=== PATIENT | female | born 1965 | race Hispanic/Latino ===

== ENCOUNTER → 2019-02-17 | Outpatient (CLI) | payer OTHER | END | disposition home or self-care (01) | LOC: OIH 11:43 | PROVIDERS: ATTEND Internal Medicine Cardiovascular Disease | DX: Z13.6 Encounter for screening for cardiovascular disorders (principal) | CPT/HCPCS: 75571 ==

== ENCOUNTER 2023-07-09 09:30 | Day surgery (SDC) | payer OTHER, MEDICARE ==
[2023-07-04 13:36] VITALS: BP 193/88; PULSE 55; RESP 18
[2023-07-09] VITALS (11 sets, daily range): BP systolic 121–175; BP diastolic 68–88; PULSE 52–84; RESP 14–19
[~2023-07-09] VITALS: Ht 154.9 cm; Wt 63.0 kg
[~2023-07-09 09:30] MED LIST: ACET-66 PO; AEC81 PO; AMLO-258 PO; ASCO-360 PO; ATOR40TA71 PO; CLON0.1T PO; IBUP-2077 PO; LACT10SO76 PO; LEVO175C2 PO; LINA290C PO; LORA0.5T83 PO; METO25TA6 PO; MONT-39 PO; PANT40TA54 PO; SEMA1PEN3 SQ; TRAM-355 PO; TRINTELLIX PO; VALS1TAB80 PO; VITAMIN D3 PO; ZINC50TA15 PO
[2023-07-09] MEDS ORDERED: LIDOCAINE HCL 400MG/20ML VIAL ONE (12:32)
[2023-07-09] MEDS ORDERED: PROPOFOL 10 MG/ML 20ML VIAL IV ONE ×2 (12:32)
== END 2023-07-09 14:10 | disposition home or self-care (01) ==
LOC: ENDO 09:30 → DAH 09:30 → ENDO 14:10
PROVIDERS: ATTEND Internal Medicine
DX: R93.3 Abnormal findings on diagnostic imaging of other parts of digestive tract (principal); K29.50 Unspecified chronic gastritis without bleeding; K44.9 Diaphragmatic hernia without obstruction or gangrene; K86.9 Disease of pancreas, unspecified; E78.5 Hyperlipidemia, unspecified; I10 Essential (primary) hypertension; F41.8 Other specified anxiety disorders; K31.84 Gastroparesis; E03.9 Hypothyroidism, unspecified; Z80.0 Family history of malignant neoplasm of digestive organs; Z79.1 Long term (current) use of non-steroidal anti-inflammatories (NSAID); Z79.82 Long term (current) use of aspirin; Z79.899 Other long term (current) drug therapy; Z87.891 Personal history of nicotine dependence; Z79.890 Hormone replacement therapy; Z90.49 Acquired absence of other specified parts of digestive tract; Z90.710 Acquired absence of both cervix and uterus; Z98.890 Other specified postprocedural states
CPT/HCPCS: 43237; 43239; J3490; J2704 ×2; A4620; A4215; A4223; A7002; A4222; A4221; A4663; A4216; J7030; A4606

== ENCOUNTER → 2024-06-14 | Outpatient (CLI) | payer OTHER, MEDICARE ==
[~2024-06-14] MED LIST changes: -TRAM-355 PO; +TRAM-543 PO
[2024-06-14 11:35] LABS: BASOPHILS # (AUTO) 0.02 K/uL (0.00-0.20); BASOPHILS % (AUTO) 0.3 % (0.0-5.0); EOSINOPHILS % (AUTO) 1.5 % (0.0-8.0); HEMATOCRIT 38.9 % (36-48); IMMATURE GRANULOCYTE ABSOLUTE 0.02 K/uL (0-1); LYMPHOCYTES # (AUTO) 1.7 K/uL (1.0-4.8); LYMPHOCYTES % (AUTO) 24.6 % (21.0-51.0); MEAN CORPUSCULAR HGB CONC 33.4 g/dL (32.0-36.0); MEAN CORPUSCULAR VOLUME 86.6 fL (79-99); MONOCYTES # (AUTO) 0.4 K/uL (0.1-1.0); MONOCYTES % (AUTO) 5.5 % (3.0-13.0); NEUTROPHILS # (AUTO) 4.7 K/uL (1.8-7.7); NEUTROPHILS % (AUTO) 67.8 % (40.0-77.0); PLATELET COUNT (AUTO) 205 K/uL (130-400); RED BLOOD CELL COUNT(AUTO) 4.49 MIL/uL (4.00-5.50); RED CELL DISTRIBUTION WIDTH 12.8 % (11.0-15.5); WHITE BLOOD COUNT (AUTO) 6.9 K/uL (4.8-10.8)
[2024-06-14 11:47] LABS: ALBUMIN 3.8 g/dL (3.5-5.0); BILIRUBIN,TOTAL 0.4 mg/dL (0.2-1.0); CREATININE 0.7 mg/dL (0.5-1.0); POTASSIUM 4.7 mmol/L (3.5-5.1); TOTAL PROTEIN, SERUM 7.5 g/dL (6.0-8.3)
== END | disposition home or self-care (01) ==
LOC: LAB 10:33
PROVIDERS: ATTEND Internal Medicine Gastroenterology
DX: R93.3 Abnormal findings on diagnostic imaging of other parts of digestive tract (principal); Z85.07 Personal history of malignant neoplasm of pancreas
CPT/HCPCS: 36415; 80053; 85025

== ENCOUNTER → 2024-06-17 | Outpatient (CLI) | payer OTHER, MEDICARE ==
[~2024-06-17] MED LIST changes: +GADOTERATE MEGLUMINE 10 MMOL/20 ML VIAL IV ONE
== END | disposition home or self-care (01) ==
LOC: RAH 07:49
PROVIDERS: ATTEND Internal Medicine Gastroenterology
DX: R93.3 Abnormal findings on diagnostic imaging of other parts of digestive tract (principal); Z85.07 Personal history of malignant neoplasm of pancreas
CPT/HCPCS: 74183; A9575

== ENCOUNTER 2024-06-30 07:43 | Day surgery (SDC) | payer OTHER, MEDICARE ==
[2024-06-30] VITALS (11 sets, daily range): BP systolic 11–157; BP diastolic 54–75; PULSE 59–69; RESP 9–20; TEMP 96.6–98
[~2024-06-30] VITALS: Ht 154.9 cm; Wt 63.5 kg
[~2024-06-30 07:43] MED LIST changes: -GADOTERATE MEGLUMINE 10 MMOL/20 ML VIAL IV ONE
[2024-06-30] MEDS ORDERED: VALS160T29 PO (10:23)
[2024-06-30] MEDS ORDERED: LEVO137C4 PO (10:25)
[2024-06-30] MEDS: 0.9%NACL 1000ML 1,000 ML IV ONE (10:30)
[2024-06-30] MEDS ORDERED: proPOFol 10 MG/ML 20ML VIAL IV ONE (12:16)
== END 2024-06-30 13:45 | disposition home or self-care (01) ==
LOC: ENDO 07:43 → DAH 07:43 → ENDO 13:45
PROVIDERS: ATTEND Internal Medicine Gastroenterology
DX: R93.3 Abnormal findings on diagnostic imaging of other parts of digestive tract (principal); K31.89 Other diseases of stomach and duodenum; C25.9 Malignant neoplasm of pancreas, unspecified; K44.9 Diaphragmatic hernia without obstruction or gangrene; D12.6 Benign neoplasm of colon, unspecified; K57.30 Diverticulosis of large intestine without perforation or abscess without bleeding; K76.0 Fatty (change of) liver, not elsewhere classified; K59.04 Chronic idiopathic constipation; I10 Essential (primary) hypertension; F32.A Depression, unspecified; E78.5 Hyperlipidemia, unspecified; F41.9 Anxiety disorder, unspecified; E03.9 Hypothyroidism, unspecified; Z90.49 Acquired absence of other specified parts of digestive tract; Z90.710 Acquired absence of both cervix and uterus; Z98.890 Other specified postprocedural states; Z80.0 Family history of malignant neoplasm of digestive organs; Z79.899 Other long term (current) drug therapy
CPT/HCPCS: 43237; J7030; J2704; A4620; A4215 ×2; A4223; A4222; A4221; A4663; A4606; J3490